=== PATIENT | male | born 1955 | race Caucasian/White ===

== ENCOUNTER 2020-06-19 20:49 | Inpatient (IN) | payer BC ==
[~2020-06-19] VITALS: Ht 172.7 cm; Wt 57.2 kg
[~2020-06-19 20:49] MED LIST: BARIUM SULFATE 340 ML SUSP.RECON***PROCEDURE AREA ONLY**DONT ENTER PO ONE
[2020-06-19 21:46] LABS: BASOPHILS # (AUTO) 0.1 X10'3 (0-0.2); BASOPHILS % (AUTO) 1.4 % (0-1); EOSINOPHILS # (AUTO) 0.4 X10'3 (0-0.9); EOSINOPHILS % (AUTO) 4.8 % (0-6); HEMATOCRIT 44.9 % (42.0-52.0); LYMPHOCYTES # (AUTO) 1.2 X10'3 (1.1-4.8); LYMPHOCYTES % (AUTO) 13.7 % (21-51); MEAN CORPUSCULAR HEMOGLOBIN 27.1 PG (27.0-31.0); MEAN CORPUSCULAR HGB CONC 33.5 g/dL (33.0-36.5); MEAN CORPUSCULAR VOLUME 80.9 FL (78-98); MONOCYTES # (AUTO) 0.6 X10'3 (0-0.9); NEUTROPHILS # (AUTO) 6.6 X10'3 (1.8-7.7); NEUTROPHILS % (AUTO) 73.1 % (42-75); PLATELET COUNT 208 X10'3 (140-440); RED BLOOD COUNT 5.55 X10'6 (4.70-6.10); RED CELL DISTRIBUTION WIDTH 14.3 % (11.5-14.5)
[2020-06-19 21:59] LABS: ALANINE AMINOTRANSFERASE 20 U/L (12-78); ALBUMIN 3.8 G/DL (3.4-5.0); ALBUMIN/GLOBULIN RATIO 1.1 (1.1-1.5); ALKALINE PHOSPHATASE 73 IU/L (46-116); ANION GAP 11 (8-16); ASPARTATE AMINO TRANSFERASE 20 U/L (10-37); BILIRUBIN,TOTAL 1.7 MG/DL (0.1-1.0); BLOOD UREA NITROGEN 9 MG/DL (7-18); BUN/CREATININE RATIO 10.6 (5.4-32.0); CHLORIDE 100 MMOL/L (99-107); CREATININE 0.85 MG/DL (0.60-1.10); GLUCOSE 100 MG/DL (70-104); LIPASE 109 U/L (73-393); POTASSIUM 3.7 MMOL/L (3.5-5.1); SODIUM 137 MMOL/L (135-145); TOTAL CARBON DIOXIDE 26.2 MMOL/L (24-32); TOTAL PROTEIN 7.4 G/DL (6.4-8.2); eGFR > 90 ML/MIN
[2020-06-19 22:12] LABS: CLARITY,URINE CLEAR (Clear); COLOR,URINE YELLOW (Yellow); GLUCOSE, URINE NEGATIVE (Neg); KETONES,URINE 15 mg/dl (Neg); LEUKOCYTE ESTERASE ,URINE NEGATIVE (Neg); NITRITES, URINE NEGATIVE (Neg); OCCULT BLOOD,URINE MODERATE (Neg); PROTEIN,URINE NEGATIVE (Neg); UA COLLECTION TYPE CLN CATCH MIDSTREAM; UROBILINOGEN,URINE 0.2 E.U/dL (0.2-1.0)
[2020-06-19 22:18] LABS: BACTERIA,URINE NONE SEEN /HPF (Neg); WBC,URINE 0-4 /HPF (0-4)
[2020-06-19 22:19] LABS: MUCUS STRANDS MODERATE /LPF (Neg); SQUAMOUS EPITHELIAL CELL,UR FEW /LPF (FEW)
[2020-06-19] MEDS ORDERED: normal saline 1000ml 1,000 ML IV ONE ×2 (23:30→23:35)
[2020-06-19] MEDS ORDERED: morphine 10mg/ml inj. IV ONE (23:35)
[2020-06-19] MEDS ORDERED: magnesium hydroxide 30ml (MOM) UD suspension PO PRN (23:50)
[2020-06-19] MEDS: normal saline 1000ml 1,000 ML IV SCH (23:50)
[2020-06-19] MEDS ORDERED: HYDROcodone/acetaminophen 5mg/325mg tablet PO PRN (23:50)
[2020-06-19] MEDS ORDERED: HYDROcodone/acetaminophen 10/325mg tab PO PRN (23:50)
[2020-06-19] MEDS ORDERED: morphine 2 MG/ML inj. syringe IV PRN (23:50)
[2020-06-19] MEDS ORDERED: mag hydrox/Alum hydrox/simeth 30ml oral suspension PO PRN (23:50)
[2020-06-19] MEDS ORDERED: acetaminophen 325mg tablet PO PRN ×2 (23:50)
[2020-06-20] MEDS ORDERED: NO HOME MEDS (00:59)
[2020-06-20 01:29] VITALS: BP 162/87
[2020-06-20] MEDS: morphine 2 MG/ML inj. syringe IV PRN ×4 (05:09→21:54)
[2020-06-20 05:55] LABS: BASOPHILS # (AUTO) 0.1 X10'3 (0-0.2); BASOPHILS % (AUTO) 0.7 % (0-1); EOSINOPHILS # (AUTO) 0.3 X10'3 (0-0.9); EOSINOPHILS % (AUTO) 3.3 % (0-6); HEMATOCRIT 43.5 % (42.0-52.0); HEMOGLOBIN 14.5 g/dl (14.0-17.9); LYMPHOCYTES # (AUTO) 1.1 X10'3 (1.1-4.8); LYMPHOCYTES % (AUTO) 13.8 % (21-51); MEAN CORPUSCULAR HEMOGLOBIN 27.2 PG (27.0-31.0); MEAN CORPUSCULAR HGB CONC 33.2 g/dL (33.0-36.5); MEAN CORPUSCULAR VOLUME 81.8 FL (78-98); MEAN PLATELET VOLUME 9.7 FL (7.4-10.4); MONOCYTES # (AUTO) 0.7 X10'3 (0-0.9); MONOCYTES % (AUTO) 8.2 % (2-12); PLATELET COUNT 168 X10'3 (140-440); RED BLOOD COUNT 5.32 X10'6 (4.70-6.10); RED CELL DISTRIBUTION WIDTH 14.2 % (11.5-14.5); WHITE BLOOD COUNT 8.1 X10'3 (4.5-11.0)
[2020-06-20 05:57] LABS: ALBUMIN 3.4 G/DL (3.4-5.0); ANION GAP 10 (8-16); BLOOD UREA NITROGEN 9 MG/DL (7-18); BUN/CREATININE RATIO 14.8 (5.4-32.0); CALCIUM 8.1 MG/DL (8.5-10.1); CHLORIDE 102 MMOL/L (99-107); CREATININE 0.61 MG/DL (0.60-1.10); GLUCOSE 83 MG/DL (70-104); SODIUM 138 MMOL/L (135-145); TOTAL CARBON DIOXIDE 25.9 MMOL/L (24-32); eGFR > 90 ML/MIN
[2020-06-20 05:59] LABS: POTASSIUM 3.9 MMOL/L (3.5-5.1)
--- NOTE | 2020-06-20 07:00 | NUR ---
Patient in room [facility]. I have received report from Aurora BARRIOS and had the opportunity to ask questions and assume patient care.
[2020-06-20 08:00] VITALS: BP 146/84
[2020-06-20] MEDS: normal saline 1000ml 1,000 ML IV SCH ×2 (09:50→15:11)
[2020-06-20] MEDS: enoxaparin 40mg/0.4ml syringe SUBCUT SCH (10:11)
[2020-06-20] MEDS: ondansetron/PF 4mg/2ml inj IV PRN ×2 (10:27→16:46)
[2020-06-20 12:00] VITALS: BP 133/75
--- NOTE | 2020-06-20 18:18 | NUR ---
Problems reprioritized. Patient report given, questions answered & plan of care reviewed with Aurora BARRIOS.
--- NOTE | 2020-06-20 19:06 | NUR ---
Page Sent PAGER ID: [phone] MESSAGE: [phone] re: Francois Ladd rm 340b. Pt complaining about "gas". NG?
[2020-06-20 19:25] VITALS: BP 188/76
--- NOTE | 2020-06-20 21:00 | NUR ---
Dr. Up aware of pt's high blood pressure. Pain medication frequency increased.
[2020-06-20] MEDS: tamsulosin 0.4mg capsule PO SCH (21:10)
--- NOTE | 2020-06-20 22:30 | NUR ---
NG tube inserted in left nare, 16 lithuanian low inter. suction.
[2020-06-21] MEDS: ondansetron/PF 4mg/2ml inj IV PRN ×2 (00:10→23:28)
[2020-06-21] MEDS: morphine 2 MG/ML inj. syringe IV PRN ×3 (00:10→23:28)
[2020-06-21] MEDS: normal saline 1000ml 1,000 ML IV SCH ×3 (00:12→21:13)
[2020-06-21 06:00] VITALS: BP 147/85
--- NOTE | 2020-06-21 06:33 | NUR ---
Patient in room [facility] 340. I have received report from Ursula BARRIOS and had the opportunity to ask questions and assume patient care. Addendum: 06/21/20 at 0636 by Sanford Taylor RN Nurse was actually Aurora BARRIOS
[2020-06-21] MEDS: enoxaparin 40mg/0.4ml syringe SUBCUT SCH (07:44)
[2020-06-21 08:58] LABS: BASOPHILS % (AUTO) 0.5 % (0-1); EOSINOPHILS % (AUTO) 0.4 % (0-6); HEMATOCRIT 46.2 % (42.0-52.0); HEMOGLOBIN 15.3 g/dl (14.0-17.9); LYMPHOCYTES # (AUTO) 0.6 X10'3 (1.1-4.8); LYMPHOCYTES % (AUTO) 14.4 % (21-51); MEAN CORPUSCULAR HEMOGLOBIN 26.9 PG (27.0-31.0); MEAN CORPUSCULAR HGB CONC 33.1 g/dL (33.0-36.5); MEAN CORPUSCULAR VOLUME 81.4 FL (78-98); MEAN PLATELET VOLUME 9.2 FL (7.4-10.4); MONOCYTES # (AUTO) 0.8 X10'3 (0-0.9); MONOCYTES % (AUTO) 18.7 % (2-12); NEUTROPHILS # (AUTO) 2.9 X10'3 (1.8-7.7); PLATELET COUNT 206 X10'3 (140-440); RED BLOOD COUNT 5.67 X10'6 (4.70-6.10); RED CELL DISTRIBUTION WIDTH 14.4 % (11.5-14.5); WHITE BLOOD COUNT 4.4 X10'3 (4.5-11.0)
[2020-06-21 09:06] LABS: ALBUMIN 3.1 G/DL (3.4-5.0); ANION GAP 11 (8-16); BLOOD UREA NITROGEN 15 MG/DL (7-18); BUN/CREATININE RATIO 19.7 (5.4-32.0); CALCIUM 8.5 MG/DL (8.5-10.1); CHLORIDE 106 MMOL/L (99-107); CREATININE 0.76 MG/DL (0.60-1.10); GLUCOSE 116 MG/DL (70-104); SODIUM 141 MMOL/L (135-145); TOTAL CARBON DIOXIDE 23.9 MMOL/L (24-32); eGFR > 90 ML/MIN
[2020-06-21 09:56] LABS: TOTAL CELLS COUNTED 100
[2020-06-21 09:57] LABS: PLATELET ESTIMATE NORMAL
[2020-06-21 12:00] VITALS: BP 146/73
--- NOTE | 2020-06-21 16:44 | NUR ---
PAGER ID: [phone] MESSAGE: [id number] Skinny Naranjo Small Bowel F/T completed. Dr. Ramos will be completing his report before he goes home. Breonna [id number]
[2020-06-21] MEDS ORDERED: iohexol 300mg/ml 100ml inj. ONE (17:43)
--- NOTE | 2020-06-21 18:30 | NUR ---
Patient in room [facility] 340. I have received report from Dallin BARRIOS and had the opportunity to ask questions and assume patient care.
[2020-06-21] MEDS: tamsulosin 0.4mg capsule PO SCH (19:00)
[2020-06-21 20:00] VITALS: BP 168/91
--- NOTE | 2020-06-21 23:53 | NUR ---
patient c/o nausea and pain. Medicated per EMAR. with effect.NG draining 300mls whitish, brownish drainage . Irrigated tube to assist with flow. All urine strained no stones observed.Report given to Karlee BARRIOS
[2020-06-22] VITALS (11 sets, daily range): BP systolic 144–163; BP diastolic 77–91
--- NOTE | 2020-06-22 | NUR ---
Patient in room [facility] 340. I have received report from Nedra BARRIOS and had the opportunity to ask questions and assume patient care.
--- NOTE | 2020-06-22 00:47 | NUR ---
i have reviewed and i agree with the assessment of Nedra BARRIOS. will continue to monitor
--- NOTE | 2020-06-22 06:30 | NUR ---
Problems reprioritized. Patient report given, questions answered & plan of care reviewed with Chata BARRIOS.
--- NOTE | 2020-06-22 06:36 | NUR ---
Patient in room [facility] 340. I have received report from Karlee BARRIOS and had the opportunity to ask questions and assume patient care.
[2020-06-22 07:25] LABS: BASOPHILS % (AUTO) 0.6 % (0-1); EOSINOPHILS # (AUTO) 0.1 X10'3 (0-0.9); EOSINOPHILS % (AUTO) 2.4 % (0-6); HEMATOCRIT 44.2 % (42.0-52.0); HEMOGLOBIN 14.5 g/dl (14.0-17.9); LYMPHOCYTES # (AUTO) 0.6 X10'3 (1.1-4.8); LYMPHOCYTES % (AUTO) 16.7 % (21-51); MEAN CORPUSCULAR HEMOGLOBIN 26.9 PG (27.0-31.0); MEAN CORPUSCULAR HGB CONC 32.8 g/dL (33.0-36.5); MEAN CORPUSCULAR VOLUME 81.9 FL (78-98); MEAN PLATELET VOLUME 9.5 FL (7.4-10.4); MONOCYTES # (AUTO) 0.7 X10'3 (0-0.9); MONOCYTES % (AUTO) 20.8 % (2-12); NEUTROPHILS # (AUTO) 2.1 X10'3 (1.8-7.7); NEUTROPHILS % (AUTO) 59.5 % (42-75); PLATELET COUNT 198 X10'3 (140-440); RED CELL DISTRIBUTION WIDTH 14.6 % (11.5-14.5); WHITE BLOOD COUNT 3.6 X10'3 (4.5-11.0)
[2020-06-22 07:27] LABS: ALBUMIN 2.8 G/DL (3.4-5.0); ANION GAP 8 (8-16); BLOOD UREA NITROGEN 14 MG/DL (7-18); CALCIUM 8.2 MG/DL (8.5-10.1); CHLORIDE 108 MMOL/L (99-107); CREATININE 0.56 MG/DL (0.60-1.10); GLUCOSE 100 MG/DL (70-104); POTASSIUM 3.6 MMOL/L (3.5-5.1); SODIUM 143 MMOL/L (135-145); TOTAL CARBON DIOXIDE 26.8 MMOL/L (24-32); eGFR > 90 ML/MIN
[2020-06-22] MEDS: enoxaparin 40mg/0.4ml syringe SUBCUT SCH (07:33)
[2020-06-22 08:56] LABS: TOTAL CELLS COUNTED 100
[2020-06-22 08:58] LABS: PLATELET ESTIMATE NORMAL; POIKILOCYTOSIS FEW
--- NOTE | 2020-06-22 09:17 | NUR ---
Pged Radiology for KUB
--- NOTE | 2020-06-22 10:20 | NUR ---
Spoke to brenda in CT she says approx 30min to 1 hour to get report. No way to expedite.
[2020-06-22] MEDS: normal saline 1000ml 1,000 ML IV SCH ×2 (11:50→23:16)
--- NOTE | 2020-06-22 13:25 | NUR ---
Patient left for surgery via hospital bed. Cell phone and shark tooth necklace pendant was put in patients bedside table top drawer .
[2020-06-22] MEDS ORDERED: sevoflurane 250ml liquid IH ONE (13:40)
[2020-06-22] MEDS ORDERED: midazolam 1 mg/ML 2ml injection ONE (13:46)
[2020-06-22] MEDS ORDERED: fentaNYL /PF 50mcg/ml 5ml ampule ONE (13:46)
[2020-06-22] MEDS ORDERED: LIDOcaine 2% 5ml jelly ONE (13:48)
[2020-06-22] MEDS ORDERED: rocuronium 10mg/ml inj IV ONE ×2 (14:09)
[2020-06-22] MEDS ORDERED: LIDOcaine 2% (20mg/ml) 5ml vial ONE (14:09)
[2020-06-22] MEDS ORDERED: propofol inj 20 ML IV ONE (14:09)
[2020-06-22] MEDS ORDERED: ceFOXitin 1000 MG inj ONE ×2 (14:21)
[2020-06-22] MEDS ORDERED: 0.9 % SODIUM CHLORIDE 10 ML VIAL ONE (14:21)
[2020-06-22] MEDS ORDERED: ePHEDrine 50MG/ML INJ. ONE (14:25)
[2020-06-22] MEDS ORDERED: albumin (Human) 5% 250ml 250 ML IV ONE ×3 (14:26→15:10)
[2020-06-22] MEDS ORDERED: BUPIVAcaine/PF 2.5mg/ml (0.25%) 10ml vial ONE (14:37)
[2020-06-22] MEDS ORDERED: BUPIVACAINE liposomal/PF 13.3 MG/ML vial IM ONE (14:38)
[2020-06-22] MEDS ORDERED: dexamethasone sod phosphate 4mg/ml inj. ONE (14:43)
[2020-06-22] MEDS ORDERED: ondansetron/PF 4mg/2ml inj ONE ×2 (14:44→15:10)
[2020-06-22] MEDS ORDERED: HYDROmorphone 1 mg/ml syringe IV PRN (15:10)
[2020-06-22] MEDS ORDERED: glycopyrrolate 0.2mg/ml inj ONE (15:14)
[2020-06-22] MEDS ORDERED: neostigmine methylsulfate 1 MG/ML 10ml vial ONE (15:14)
--- NOTE | 2020-06-22 15:20 | NUR ---
ADMITTED TO PACU FROM OR ACCOMPANIED BY ANESTHESIA. INTIAL PHYSICAL ASSESSMENT DONE AND RECORDED. REPORT RECEIVED FROM ANESTHESIA.
--- NOTE | 2020-06-22 15:20 | NUR ---
ADMITTED TO PACU FROM OR ACCOMPANIED BY ANESTHESIA. INTIAL PHYSICAL ASSESSMENT DONE AND RECORDED. REPORT RECEIVED FROM ANESTHESIA.
[2020-06-22] MEDS ORDERED: labetalol 20mg/4ml (5mg/ml) syringe IV PRN (15:30)
[2020-06-22] MEDS ORDERED: ringers solution, lacted 1,000 ML IV SCH (15:30)
[2020-06-22] MEDS ORDERED: hydrALAZINE 20mg/ml inj. IV PRN (15:30)
[2020-06-22] MEDS ORDERED: ondansetron/PF 4mg/2ml inj IV PRN (15:30)
[2020-06-22] MEDS ORDERED: acetaminophen 1,000mg/100ml IV 100 ML IV PRN (15:30)
[2020-06-22] MEDS ORDERED: proCHLORperazine 10 MG/2 ml inj IV PRN (15:30)
[2020-06-22] MEDS ORDERED: morphine 4 MG/ML inj SYRINge IV PRN (15:30)
[2020-06-22] MEDS ORDERED: morphine 2 MG/ML inj. syringe IV PRN (15:30)
[2020-06-22] MEDS ORDERED: meperidine/PF 25mg/ml syringe IV PRN ×3 (15:30)
--- NOTE | 2020-06-22 16:30 | NUR ---
PACU DISCHARGE CRITERIA MET, REPORT GIVEN TO FLOOR. DENIES PAIN OR DISCOMFORT, TRANSFERRED TO ROOM IN STABLE GOOD CONDITION.
[2020-06-22] MEDS: ceFOXitin inj 1,000 MG in normal saline 100ml IV soln 100 ML IV SCH (17:30)
--- NOTE | 2020-06-22 17:54 | NUR ---
PAGER ID: [phone] MESSAGE: Chata-Surg [phone] Re: [id number] Brown question re: diet and ALBERTO drain please call Addendum: 06/22/20 at 1758 by Chata Whitley RN Per Dr Dumont he is aware I have no adapter to hook patients ALBERTO up to suction. Per Dr Dumont he spoke to Sanjeev Brasher the other day and he was drawing with a 10cc syringe to empty out more drainage. I asked Dr Dumont if he would like me to call the IR person o/c and he said no need. Per Dr Dumont BID drain with syringe. Addendum: 06/22/20 at 1751 by Chata Whitley RN disregard note this was charged on incorrect patient.
--- NOTE | 2020-06-22 18:21 | NUR ---
Patient in room [facility] 340. I have received report from Chata BARRIOS and had the opportunity to ask questions and assume patient care.
--- NOTE | 2020-06-22 18:21 | NUR ---
Problems reprioritized. Patient report given, questions answered & plan of care reviewed with Karlee BARRIOS.
[2020-06-22] MEDS: tamsulosin 0.4mg capsule PO SCH (21:00)
[2020-06-22] MEDS: diatr meglu/diatrizoate 30ml oral sol.-(3 dose) bottle PO SCH (21:00)
--- NOTE | 2020-06-22 22:45 | NUR ---
machine only saved two post op vitals. will record. pt up to BSC with small BM and now ambulating the hallway. will continue to monitor.
[2020-06-23] VITALS: BP 125/74
[2020-06-23] MEDS: ceFOXitin inj 1,000 MG in normal saline 100ml IV soln 100 ML IV SCH (00:13)
[2020-06-23 05:25] VITALS: BP 140/71
[2020-06-23 06:14] LABS: BASOPHILS % (AUTO) 0.1 % (0-1); EOSINOPHILS % (AUTO) 0.1 % (0-6); HEMATOCRIT 39.6 % (42.0-52.0); HEMOGLOBIN 13.2 g/dl (14.0-17.9); LYMPHOCYTES # (AUTO) 0.6 X10'3 (1.1-4.8); LYMPHOCYTES % (AUTO) 10.8 % (21-51); MEAN CORPUSCULAR HGB CONC 33.2 g/dL (33.0-36.5); MEAN CORPUSCULAR VOLUME 81.4 FL (78-98); MONOCYTES # (AUTO) 0.9 X10'3 (0-0.9); MONOCYTES % (AUTO) 15.6 % (2-12); NEUTROPHILS # (AUTO) 4.1 X10'3 (1.8-7.7); NEUTROPHILS % (AUTO) 73.4 % (42-75); PLATELET COUNT 187 X10'3 (140-440); RED BLOOD COUNT 4.87 X10'6 (4.70-6.10); RED CELL DISTRIBUTION WIDTH 14.2 % (11.5-14.5); WHITE BLOOD COUNT 5.5 X10'3 (4.5-11.0)
[2020-06-23 06:23] LABS: ANION GAP 10 (8-16); BLOOD UREA NITROGEN 14 MG/DL (7-18); BUN/CREATININE RATIO 21.5 (5.4-32.0); CALCIUM 8.1 MG/DL (8.5-10.1); CHLORIDE 108 MMOL/L (99-107); CREATININE 0.65 MG/DL (0.60-1.10); GLUCOSE 118 MG/DL (70-104); POTASSIUM 3.8 MMOL/L (3.5-5.1); SODIUM 145 MMOL/L (135-145); TOTAL CARBON DIOXIDE 27.1 MMOL/L (24-32); eGFR > 90 ML/MIN
--- NOTE | 2020-06-23 06:33 | NUR ---
Problems reprioritized. Patient report given, questions answered & plan of care reviewed with Breonna RN with Dallin RN.
--- NOTE | 2020-06-23 06:34 | NUR ---
Patient in room [facility] 340. I have received report from Brianna de and had the opportunity to ask questions and assume patient care.
[2020-06-23] MEDS: diatr meglu/diatrizoate 30ml oral sol.-(3 dose) bottle PO SCH ×2 (07:00→21:00)
[2020-06-23 07:24] LABS: TOTAL CELLS COUNTED 100
[2020-06-23 07:25] LABS: PLATELET ESTIMATE NORMAL
[2020-06-23] MEDS: enoxaparin 40mg/0.4ml syringe SUBCUT SCH (07:34)
[2020-06-23 08:00] VITALS: BP 137/75
[2020-06-23] MEDS: normal saline 1000ml 1,000 ML IV SCH ×2 (09:56→19:58)
[2020-06-23 12:00] VITALS: BP 151/67
--- NOTE | 2020-06-23 17:02 | NUR ---
Patient moved to 344B. Issues with bathroom toilet.
--- NOTE | 2020-06-23 18:15 | NUR ---
Problems reprioritized. Patient report given, questions answered & plan of care reviewed with Anna BARRIOS.
--- NOTE | 2020-06-23 18:42 | NUR ---
Patient in room [facility] 344. I have received report from Breonna BARRIOS and Dallin RN and had the opportunity to ask questions and assume patient care.
[2020-06-23 19:00] VITALS: BP 130/73
[2020-06-23] MEDS: tamsulosin 0.4mg capsule PO SCH (19:59)
[2020-06-24] VITALS: BP 145/74
[2020-06-24] MEDS: normal saline 1000ml 1,000 ML IV SCH (04:03)
[2020-06-24 06:13] LABS: ALBUMIN 2.6 G/DL (3.4-5.0); ANION GAP 5 (8-16); BLOOD UREA NITROGEN 7 MG/DL (7-18); BUN/CREATININE RATIO 11.7 (5.4-32.0); CALCIUM 7.5 MG/DL (8.5-10.1); CHLORIDE 109 MMOL/L (99-107); GLUCOSE 96 MG/DL (70-104); POTASSIUM 3.2 MMOL/L (3.5-5.1); SODIUM 143 MMOL/L (135-145); TOTAL CARBON DIOXIDE 29.3 MMOL/L (24-32); eGFR > 90 ML/MIN
[2020-06-24 06:15] LABS: BASOPHILS % (AUTO) 0.7 % (0-1); EOSINOPHILS # (AUTO) 0.5 X10'3 (0-0.9); HEMATOCRIT 38.6 % (42.0-52.0); HEMOGLOBIN 12.9 g/dl (14.0-17.9); LYMPHOCYTES # (AUTO) 1.1 X10'3 (1.1-4.8); MEAN CORPUSCULAR HEMOGLOBIN 27.3 PG (27.0-31.0); MEAN CORPUSCULAR HGB CONC 33.4 g/dL (33.0-36.5); MEAN CORPUSCULAR VOLUME 81.7 FL (78-98); MONOCYTES # (AUTO) 0.8 X10'3 (0-0.9); MONOCYTES % (AUTO) 12.2 % (2-12); NEUTROPHILS # (AUTO) 4.2 X10'3 (1.8-7.7); NEUTROPHILS % (AUTO) 63.1 % (42-75); PLATELET COUNT 181 X10'3 (140-440); RED BLOOD COUNT 4.72 X10'6 (4.70-6.10); RED CELL DISTRIBUTION WIDTH 14.3 % (11.5-14.5); WHITE BLOOD COUNT 6.6 X10'3 (4.5-11.0)
--- NOTE | 2020-06-24 06:16 | NUR ---
Problems reprioritized. Patient report given, questions answered & plan of care reviewed with Dallin BARRIOS and Breonna BARRIOS.
--- NOTE | 2020-06-24 06:27 | NUR ---
Patient in room [facility] 344. I have received report from Anna BARRIOS and had the opportunity to ask questions and assume patient care.
[2020-06-24] MEDS ORDERED: potassium Cl 20 mEq SR tablet PO PRN (07:55)
[2020-06-24] MEDS ORDERED: magnesium Cl slow-release 64mg tablet PO PRN (07:55)
[2020-06-24] MEDS ORDERED: potassium Cl 40MEQ/1/2NS 520ml 520 ML IV PRN (07:55)
[2020-06-24] MEDS ORDERED: magnesium 4gm in 100ml NS 100 ML IV PRN (07:55)
[2020-06-24 08:00] VITALS: BP 135/77
[2020-06-24] MEDS: enoxaparin 40mg/0.4ml syringe SUBCUT SCH (08:00)
[2020-06-24] MEDS ORDERED: K and/or MAG REPLACEMENT MC SCH (08:00)
[2020-06-24 09:01] LABS: MAGNESIUM 1.8 MG/DL (1.5-2.4)
[2020-06-24] MEDS: potassium Cl 20 mEq SR tablet PO PRN ×2 (09:29→13:59)
[2020-06-24] MEDS ORDERED: tamsulosin capsule PO (10:41)
--- NOTE | 2020-06-24 10:54 | NUR ---
Patient to have lunch, see if tolerated. If tolerated can DC per MD order.
[2020-06-24 11:00] VITALS: BP 144/77
--- NOTE | 2020-06-24 11:32 | NUR ---
Initial: Pt admit dx small bowel obstruction after presenting with abdominal pain and constipation, Per EMR. Pt is s/p surgical lysis of adhesions with bowel functioning returning. Pt PO intake is 75-100% on a clear liquid diet which was well tolerated. Pt diet advanced this morning to regular pending PO intake. Last BM 06/23. Will continue to follow. Recommendations: 1) Continue with regular diet 2) Bowel Care Per Rx 3) Weekly Wts Addendum: 06/24/20 at 1132 by Meeta ORTEGA VENDING MACHINE TECHNICIAN RD Amended: Links added. Addendum: 06/24/20 at [address] JUAN FRANCISCO agrees w/ above compensation intern note.
--- NOTE | 2020-06-24 14:38 | NUR ---
PAGER ID: [phone] MESSAGE: Dallin [phone] Julee caslte tolerated his lunch, continue with discharge plans?
== END 2020-06-24 16:00 | disposition home or self-care (01) | DRG 336 ==
LOC: ER 20:49 → ED HOLD 23:49 → SUR 3N 06-20 00:45
PROVIDERS: ADMIT Internal Medicine; ATTEND Internal Medicine
PROC: BW211ZZ Computerized Tomography (CT Scan) of Abdomen and Pelvis using Low Osmolar Contrast (ICD-10-PCS; 2020-06-21)
PROC: 0DN80ZZ Release Small Intestine, Open Approach (ICD-10-PCS; principal; 2020-06-22 13:40)
DX: K56.50 Intestinal adhesions [bands], unspecified as to partial versus complete obstruction (principal); N13.2 Hydronephrosis with renal and ureteral calculous obstruction; N28.1 Cyst of kidney, acquired; Z20.822 Contact with and (suspected) exposure to COVID-19; K43.2 Incisional hernia without obstruction or gangrene; R19.7 Diarrhea, unspecified; Z79.899 Other long term (current) drug therapy; Z87.442 Personal history of urinary calculi; Z90.49 Acquired absence of other specified parts of digestive tract
CPT/HCPCS: 36415; 71045; 74018; 74176; 74177; 74248; 80048; 80053; 81001; 82948; 83690; 83735; 83880; 85007; 85025; 85610; 86885; 86900; 86901; 87070; 87075; 87081; 87635; 99285; A4618; A6253; C1758; C9290; G0378; J0131; J0694; J1100; J1650; J2001; J2175; J2250; J2270; J2405; J2704; J2710; J3010; J3490; J7030; J7120; P9045; Q9967

== ENCOUNTER 2020-08-12 13:47 | Emergency (ER) | payer BC ==
[~2020-08-12] VITALS: Ht 172.7 cm; Wt 64.7 kg
[~2020-08-12 13:47] MED LIST changes: -BARIUM SULFATE 340 ML SUSP.RECON***PROCEDURE AREA ONLY**DONT ENTER PO ONE; +tamsulosin capsule PO
[2020-08-12 14:08] VITALS: BP 126/84
[2020-08-12] MEDS ORDERED: ketorolac tromethamine 15mg/ml inj. IM ONE (15:35)
== END 2020-08-12 15:56 | disposition home or self-care (01) ==
LOC: ER 13:48
DX: M25.512 Pain in left shoulder (principal); Z90.49 Acquired absence of other specified parts of digestive tract; Z98.890 Other specified postprocedural states; Z87.442 Personal history of urinary calculi; Z72.89 Other problems related to lifestyle; Z79.899 Other long term (current) drug therapy
CPT/HCPCS: 73030; 96372; 99283; J1885